=== PATIENT | male | born 1970 | race Two or more races ===

== ENCOUNTER 2017-04-23 13:54 | Emergency (ER) | payer SELFPAY ==
[2017-04-23] MEDS ORDERED: NITROGLYCERIN 0.4 MG TAB SL PRN (14:00)
[2017-04-23] MEDS ORDERED: SODIUM CHLORIDE 0.9% FLUSH 10 ML SOL IV PRN (14:00)
[2017-04-23 14:10] VITALS: TEMP 98.7; O2SAT 100
[2017-04-23 14:25] LABS: BASOPHILS % (AUTO) 1 % (0-3); EOSINOPHILS % (AUTO) 2 % (0-9); HEMATOCRIT 46 % (39-53); MEAN CORPUSCULAR HGB CONC 35.2 gm/dl (32.0-36.0); MEAN CORPUSCULAR VOLUME 95 fL (80-100); MONOCYTES % (AUTO) 10.9 % (0-12); NEUTROPHILS % (AUTO) 59.7 % (37-80)
[2017-04-23 14:30] LABS: CALCIUM 9.2 mg/dl (8.5-10.1); GLOM FILT RATE 117 mL/min (>60); POTASSIUM 3.7 mMol/L (3.5-5.1); SODIUM 138 mMol/L (136-145)
[2017-04-23] MEDS ORDERED: TICAGRELOR 90 MG TAB PO ONE ×2 (14:44→14:47)
[2017-04-23] MEDS ORDERED: HEPARIN SODIUM 5000 U/ML SOL IV ONE (14:44)
[2017-04-23] MEDS ORDERED: HEPARIN SODIUM 5000 U/ML SOL ONE (14:46)
[2017-04-23 15:06] VITALS: PULSE 56
[2017-04-23 15:07] VITALS: BP 117/72; RESP 18
== END 2017-04-23 14:51 | disposition short-term general hospital (02) | DRG 282 ==
LOC: ED 13:54
DX: I21.3 ST elevation (STEMI) myocardial infarction of unspecified site (principal)
CPT/HCPCS: 36415; 71010; 80048; 84484; 85025; 85610; 93005; 96374; 99291; 99292; J1644

== ENCOUNTER 2017-05-15 19:31 | Emergency (ER) | payer OTHER ==
[2017-05-15 19:49] VITALS: RESP 18
[2017-05-15 19:57] LABS: BASOPHILS % (AUTO) 1 % (0-3); EOSINOPHILS % (AUTO) 2 % (0-9); HEMATOCRIT 44 % (39-53); MEAN CORPUSCULAR HGB CONC 34.9 gm/dl (32.0-36.0); MEAN CORPUSCULAR VOLUME 95 fL (80-100); MONOCYTES % (AUTO) 6.2 % (0-12); NEUTROPHILS % (AUTO) 54.4 % (37-80)
[2017-05-15 20:21] LABS: ALT 21 IU/L (14-63); CALCIUM 8.6 mg/dl (8.5-10.1); GLOM FILT RATE 108 mL/min (>60); POTASSIUM 3.9 mMol/L (3.5-5.1); SALICYLATE 5.6 mg/dl (2.8-30.0); SODIUM 137 mMol/L (136-145); THYROID STIMULATING HORMONE 1.674 uIU/ml (0.358-3.740)
[2017-05-15 21:18] LABS: APPEARANCE,URINE Clear; BILIRUBIN,URINE NEGATIVE (NEGATIVE); COLOR,URINE Yellow; GLUCOSE, URINE (UA) NEGATIVE (NEGATIVE); KETONES,URINE NEGATIVE (NEGATIVE); LEUKOCYTE ESTERASE ,URINE NEGATIVE (NEGATIVE); NITRATE,URINE NEGATIVE (NEGATIVE); OCCULT BLOOD,URINE NEGATIVE (NEG-TRACE); UROBILINOGEN,URINE 0.2 (0.2-1.0 EU)
[2017-05-15 21:30] LABS: AMPHETAMINES NEGATIVE (NEGATIVE); METHADONE NEGATIVE (NEGATIVE); OPIATES(OP13) NEGATIVE (NEGATIVE); OXYCODONE(OXY) NEGATIVE (NEGATIVE); PROPOXYPHENE(PPX) NEGATIVE (NEGATIVE); RBC,URINE 0-1 (0-3AV/HPF); TRICYCLIC ANTIDEPRESSANTS NEGATIVE (NEGATIVE); WBC,URINE 0-1 (0-5AV/HPF)
[2017-05-16 00:25] VITALS: BP 113/68; PULSE 59; TEMP 98.4; O2SAT 98
== END 2017-05-16 04:00 | disposition short-term general hospital (02) | DRG 914 ==
LOC: ED 19:31
DX: T14.91 Suicide attempt (principal); F10.129 Alcohol abuse with intoxication, unspecified; Y90.6 Blood alcohol level of 120-199 mg/100 ml
CPT/HCPCS: 80053; 80305; 80307; 81001; 83735; 84443; 84484; 85025; 93005; 99285